=== PATIENT | female | born 1980 | race Caucasian/White ===

== ENCOUNTER 2017-01-27 03:35 | Inpatient (IN) | END 2017-02-23 19:04 | DRG 3 | DX: I61.8 Other nontraumatic intracerebral hemorrhage (principal); G93.6 Cerebral edema; J69.0 Pneumonitis due to inhalation of food and vomit; A41.9 Sepsis, unspecified organism; N17.9 Acute kidney failure, unspecified; G91.9 Hydrocephalus, unspecified; I82.411 Acute embolism and thrombosis of right femoral vein; J96.00 Acute respiratory failure, unspecified whether with hypoxia or hypercapnia; G81.91 Hemiplegia, unspecified affecting right dominant side; Z94.0 Kidney transplant status; I16.1 Hypertensive emergency; N39.0 Urinary tract infection, site not specified; I67.848 Other cerebrovascular vasospasm and vasoconstriction; D69.6 Thrombocytopenia, unspecified; M32.9 Systemic lupus erythematosus, unspecified; I61.5 Nontraumatic intracerebral hemorrhage, intraventricular; I10 Essential (primary) hypertension; E11.9 Type 2 diabetes mellitus without complications; Z79.899 Other long term (current) drug therapy; B96.3 Hemophilus influenzae [H. influenzae] as the cause of diseases classified elsewhere; B95.2 Enterococcus as the cause of diseases classified elsewhere; Z88.2 Allergy status to sulfonamides; Z88.0 Allergy status to penicillin; D72.825 Bandemia; Z75.1 Person awaiting admission to adequate facility elsewhere ==